=== PATIENT | female | born 1950 | race Caucasian/White ===

== ENCOUNTER 2019-03-13 14:34 | Outpatient (CLI) | payer OTHER, MEDICAID, SELFPAY ==
[2019-03-13 16:13] LABS: Anion Gap 7.4 mmol/L (3-11); BUN 36 mg/dL (7-18); CO2 31.6 mmol/L (21.0-32.0); CREATININE 1.01 mg/dL (0.55-1.02); Calcium 9.1 mg/dL (8.5-10.1); Chloride 106 mmol/L (98-107); Estimated GFR 54.03 (mL/min/1.73m2); Glucose 98 mg/dL (74-106); Potassium 4.2 mmol/L (3.5-5.1); Sodium 145 mmol/L (136-145); TSH (W/Ref FT4) 10.61 uIU/mL (0.36-3.74)
[2019-03-13 16:44] LABS: FREE T4 0.72 ng/dL (0.76-1.46)
[2019-03-13 17:17] LABS: Calculated LDL 85 mg/dL; Cholesterol 150 mg/dL (<200); HDL Cholesterol 53 mg/dL (40-60); Triglyceride 60 mg/dL (<150)
== END 2019-03-13 14:54 ==
PROVIDERS: PCP Student in an Organized Health Care Education/Training Program; Visit Provider Student in an Organized Health Care Education/Training Program
DX: E03.9 Hypothyroidism, unspecified (principal); E11.9 Type 2 diabetes mellitus without complications
CPT/HCPCS: 36415; 80048; 80061; 84439; 84443

== ENCOUNTER 2019-08-14 02:44 | Outpatient (CLI) | payer OTHER, SELFPAY ==
--- NOTE | 2019-08-14 15:37 | DI.MAMMO_ITS ---
EXAM: MG MAMMO SCREENING CLINICAL HISTORY: screening TECHNIQUE: Mammograms were interpreted according to the usual protocol including computer analysis w [facility] CAD system, tomosynthesis and C-view imaging. COMPARISON: FINDINGS: The breasts are of moderate density with fairly symmetrical distribution of fibroglandular tissue. N o dominant mass or clumped microcalcification is identified in either breast. The current examinatio n is compared with previous examination of October 2011. There are areas of of focal increased nodula r appearing radiodensity seen on CC and MLO views the right breast which are more prominent than on t he prior study, additional mammographic views are requested to include CC and MLO spot compression vi ews of the right breast. Additionally there is a question of new focal area nodular radiodensity in the central lateral portion of left breast on CC view, additional CC spot compression view of the lef t breast also requested. IMPRESSION: Additional mammographic views of both breasts requested as described above. Breast ultrasound may be indicated as well depending on the results of the additional mammographic views. BI-RADS Cat 0 - Assessment Incomplete: Need additional imaging evaluation: Breast Density - Category B - Scattered areas of fibroglandular density:
== END 2019-08-14 03:04 ==
PROVIDERS: PCP Student in an Organized Health Care Education/Training Program; Visit Provider Student in an Organized Health Care Education/Training Program
DX: Z12.31 Encounter for screening mammogram for malignant neoplasm of breast (principal); R92.8 Other abnormal and inconclusive findings on diagnostic imaging of breast
CPT/HCPCS: 77063; 77067

== ENCOUNTER 2019-09-02 00:39 | Outpatient (CLI) | payer OTHER, SELFPAY ==
--- NOTE | 2019-09-02 | DI.US_ITS ---
EXAM: MG MAMMO SCREEN CALL BACK BI CLINICAL HISTORY: F/U ABNL MAMMO,INCREASED NODULARITY ON RT, NEW NODULAR DENSITY, LT TECHNIQUE: Mammograms were interpreted according to the usual protocol including computer analysis w ith CAD system, tomosynthesis and C-view imaging. COMPARISON: FINDINGS: Bilateral spot compression views and bilateral breast ultrasound are interpreted in conjunction. The se examinations were obtained to evaluate questionable small areas of nodularity seen on recent mammo gram bilaterally. Additional mammographic views fail to show a discrete mass. Breast ultrasound vinicius ws no evidence of mass or cyst. IMPRESSION: No specific evidence of malignancy this time. I would suggest that a follow-up mammogram be obtained in 6 months which should be a bilateral mammogram. Category: BI-RADS Cat 3 - 6 month - Probably Benign Finding: Recommend follow-up mammography in 6 months Breast Density - Category C - Heterogeneously dense
== END 2019-09-02 00:59 ==
PROVIDERS: PCP Student in an Organized Health Care Education/Training Program; Visit Provider Student in an Organized Health Care Education/Training Program
DX: Z12.31 Encounter for screening mammogram for malignant neoplasm of breast (principal); R92.8 Other abnormal and inconclusive findings on diagnostic imaging of breast; N64.59 Other signs and symptoms in breast
CPT/HCPCS: 76642; 77063; 77067

== ENCOUNTER 2020-03-16 00:43 | Outpatient (CLI) | payer OTHER, SELFPAY ==
--- NOTE | 2020-03-16 13:47 | DI.MAMMO_ITS ---
EXAM: MG MAMMO DIAGNOSTIC BI CLINICAL HISTORY: f/u abnormal mammo,6 MO F/U,R92.8 TECHNIQUE: Bilateral full field digital CC and MLO mammographic images were obtained with 3D tomosyn thesis and utilizing computer aided detection (CAD). COMPARISON: Available for comparison. FINDINGS: Masses/Architectural Distortion: None seen. Microcalcifications: No suspicious pleomorphic-type are seen. Skin Thickening/Nipple Retraction: None. IMPRESSION: 1. No significant interval change with no specific features of malignancy noted. 2. Unless there is more urgent need, screening mammography is recommended, as per [employer] guidelines. BI-RADS Category 1 - Negative Breast Density - Category C - Heterogeneously dense Breast density category C or D implies that the patient has dense breast tissue. Dense breast tissue is very common and is not abnormal but dense breast tissue can make it harder to find cancer on a ma mmogram. Also, dense breast tissue may increase their breast cancer risk. This information about the result of the mammogram report was provided to the patient to raise their awareness. Use this report when you speak with the patient about their risks for breast cancer, which includes their family hist ory. At that time, you may recommend for more screening tests (Ultrasound or MRI) as they might be us eful based on their risk. A negative radiographic report should not delay biopsy if a dominant or clinically suspicious mass is present. Up to ten percent of cancers are not identified on mammography. A negative report may reinforce clinical impression. Adenosis and dense breasts may obscure an underlying neoplasm. False positive reports average 6 to 10%. Patient will receive a letter notifying them of these results.
== END 2020-03-16 01:03 ==
PROVIDERS: PCP Student in an Organized Health Care Education/Training Program; Visit Provider Student in an Organized Health Care Education/Training Program
DX: R92.8 Other abnormal and inconclusive findings on diagnostic imaging of breast (principal)
CPT/HCPCS: 77062; 77066; G0279

== ENCOUNTER 2020-10-18 01:29 | Outpatient (CLI) | payer OTHER, SELFPAY ==
--- NOTE | 2020-10-18 08:15 | DI.CTLCSR_ITS ---
Exam(s) CT CHEST LUNG CANCER SCREEN EXAM: CT CHEST LUNG CANCER SCREEN CLINICAL HISTORY: Screening for lung cancer,former smoker, z87.891 TECHNIQUE: Imaging Protocol: Axial computed tomography images with coronal and sagittal reformatted images were created and reviewed COMPARISON: No exams were available for comparison FINDINGS: Tracheobronchial tree: Patent where visualized. Mediastinum and Chani: No dominant adenopathy or fluid collection. Pulmonary parenchyma: 2 x 1.5 x 2 centimeter spiculated appearing partially cavitary mass superior se gment right lower lobe. Lung Nodules: A few scattered peripheral 3 and 4 millimeter nodules. Pleura: No effusion or pneumothorax. Heart: The heart is not dilated. Moderate coronary artery calcifications are seen. Aorta: Thoracic aorta non-dilated. Moderate atherosclerotic changes. Upper abdomen: Unremarkable. Bones: Within normal limits. Soft Tissues: Unremarkable. IMPRESSION: 2 centimeter spiculated cavitary mass right lower lobe. Lung RADS Cat 4B - Suspicious: Findings for which additional diagnostic testing and/or tissue samplin g is recommended Lung-RADS 1.0 CATEGORIES: Category 0 - Prior chest CT exam(s) being located for comparison. Category 1 - Annual screening in 12 months. No nodules or definitely benign nodules. Category 2 - Annual screening in 12 months. Benign appearance. Nodules with low likelihood of becomin g active cancer. Category 3 - 6-month follow-up. Probably benign. Short-term follow-up suggested. Nodules with low lik elihood of becoming active cancer. Category 4A - 3-month follow-up and CT/PET if >8 mm in size. Suspicious finding. Findings which requi re additional testing. Category 4B - Findings which require additional testing and tissue sampling. Modifier S- Potentially clinically significant findings (non lung cancer) RADIATION DOSE DELIVERED: 82.69mGy.cm Total DLP 1.84mGy CTDIvol DATA REPOSITORY: All CT scans at this facility are submitted to the National Radiology Data Registry (NRDR) Dose Index Registry (DIR) with the [employer] ([employer]). RADIATION OPTIMIZATION: All CT scans at this facility use at least one of these dose optimization te chniques: automated exposure control; mA and/or kV adjustment per patient size (includes targeted exa ms where dose is matched to clinical indication); or iterative reconstruction.
== END 2020-10-18 01:49 ==
PROVIDERS: PCP Student in an Organized Health Care Education/Training Program; Visit Provider Student in an Organized Health Care Education/Training Program
DX: Z12.2 Encounter for screening for malignant neoplasm of respiratory organs (principal); R91.8 Other nonspecific abnormal finding of lung field; Z87.891 Personal history of nicotine dependence
CPT/HCPCS: 71271

== ENCOUNTER 2020-10-20 03:32 | Outpatient (CLI) | payer OTHER, SELFPAY ==
[2020-10-20 14:52] LABS: HCT 39.7 % (36.0-46.0); HGB 12.6 g/dL (11.2-15.7); MCH 29.8 pg (27.0-33.0); MCHC 31.7 % (32.0-36.0); MCV 93.9 fL (80-95); MPV 10.2 fL (8.0-11.0); Platelet Count 192 10^3/uL (130-400); RBC 4.23 10^6/uL (3.93-5.22); RDW 11.3 % (11.7-14.6); RDW-SD 38.5 fL; WBC 4.78 10^3/uL (4.4-10.8)
[2020-10-20 16:17] LABS: ALT 15 U/L (14-59); AST 16 U/L (15-37); Albumin 3.6 g/dL (3.4-5.0); Alkaline Phosphatase 80 U/L (46-116); Anion Gap 7.7 mmol/L (3-11); BUN 31 mg/dL (7-18); Bilirubin, Total 0.7 mg/dL (0.2-1.0); CO2 30.3 mmol/L (21.0-32.0); CREATININE 1.3 mg/dL (0.55-1.02); Calcium 9.1 mg/dL (8.5-10.1); Calculated LDL 102 mg/dL (<100); Chloride 107 mmol/L (98-107); Cholesterol 153 mg/dL (<200); Estimated GFR 40.26 (mL/min/1.73m2); Glucose 123 mg/dL (74-106); HDL Cholesterol 41 mg/dL (40-60); Potassium 4.1 mmol/L (3.5-5.1); Sodium 145 mmol/L (136-145); TSH (W/Ref FT4) 0.13 uIU/mL (0.36-3.74); Total Protein 7.5 g/dL (6.4-8.2); Triglyceride 50 mg/dL (<150); Vitamin B12 497 pg/mL (193-986)
[2020-10-20 18:16] LABS: FREE T4 1.05 ng/dL (0.76-1.46)
== END 2020-10-20 03:33 | disposition home or self-care (01) ==
LOC: LBO 03:32
PROVIDERS: PCP Student in an Organized Health Care Education/Training Program; Visit Provider Student in an Organized Health Care Education/Training Program
DX: I10 Essential (primary) hypertension (principal); E11.9 Type 2 diabetes mellitus without complications; E78.5 Hyperlipidemia, unspecified; R26.9 Unspecified abnormalities of gait and mobility; R41.3 Other amnesia; R53.83 Other fatigue; E03.9 Hypothyroidism, unspecified; F32.9 Major depressive disorder, single episode, unspecified; E46 Unspecified protein-calorie malnutrition; N28.9 Disorder of kidney and ureter, unspecified; Z86.2 Personal history of diseases of the blood and blood-forming organs and certain disorders involving the immune mechanism
CPT/HCPCS: 36415; 80053; 80061; 85027; 82607; 84439; 84443

== ENCOUNTER 2020-10-28 11:58 | Outpatient (REF) | payer OTHER, SELFPAY ==
[2020-10-28 12:09] LABS: Source Nasal/Nares
[2020-10-28 13:03] LABS: COVID-19 PCR Negative (Negative)
== END 2020-10-28 11:59 | disposition home or self-care (01) ==
LOC: LBN 11:58
PROVIDERS: PCP Student in an Organized Health Care Education/Training Program; Visit Provider Ophthalmology
DX: Z20.822 Contact with and (suspected) exposure to COVID-19 (principal); Z01.818 Encounter for other preprocedural examination
CPT/HCPCS: 87635

== ENCOUNTER 2020-10-28 12:17 | Outpatient (CLI) | payer OTHER, SELFPAY ==
--- NOTE | 2020-10-28 10:45 | DI.RAD_ITS ---
Exam(s) XR KNEE LT 3V AP,LAT,NEO EXAM: XR KNEE LT 3V AP,LAT,NEO CLINICAL HISTORY: eval L knee pain. TECHNIQUE: 2D digital imaging was performed. COMPARISON: CR LEFT KNEE LIMITED 1 OR 2 VIEWS from 05/03/2012 FINDINGS: Advanced narrowing and marginal osteophytes in the medial compartment again noted. There is also bee n progression of degenerative change in the lateral compartment with slight increase in size of the m arginal osteophyte at this level. There are advanced degenerative changes in the patellofemoral comp artment with further progression. There appears to be a small joint effusion. No lytic osseous lesi ons. IMPRESSION: Compared to 2013 there is further progression of degenerative change. Small joint effusion. DATA REPOSITORY: RADIATION DOSE DELIVERED:
--- NOTE | 2020-10-28 10:45 | DI.RAD_ITS ---
Exam(s) XR KNEE RT 3V AP,LAT,NEO EXAM: XR KNEE RT 3V AP,LAT,NEO CLINICAL HISTORY: eval R knee pain. TECHNIQUE: 2D digital imaging was performed. COMPARISON: CR LEFT KNEE LIMITED 1 OR 2 VIEWS from 05/03/2012 CR XR KNEE LT 3V AP,LAT,NEO from 10/28/2020 FINDINGS: There is no evidence of fracture. There is significant joint space narrowing of the medial compartme nt and marginal osteophytes. Lateral compartment exhibits relatively preserved height. Moderate deg enerative changes in the patellofemoral compartment. Bone density normal. No osseous lesions. Ther e appears to be a joint effusion. IMPRESSION: DATA REPOSITORY: RADIATION DOSE DELIVERED:
== END 2020-10-28 12:18 | disposition home or self-care (01) ==
LOC: DIORS 12:18
PROVIDERS: PCP Student in an Organized Health Care Education/Training Program; Referring Provider Family Medicine; Visit Provider Student in an Organized Health Care Education/Training Program
DX: M25.562 Pain in left knee (principal); M25.561 Pain in right knee; M17.12 Unilateral primary osteoarthritis, left knee; M17.11 Unilateral primary osteoarthritis, right knee; Z98.890 Other specified postprocedural states
CPT/HCPCS: 20610; 73562; 99203; J1040

== ENCOUNTER 2020-11-01 11:12 | Day surgery (SDC) | payer OTHER, SELFPAY ==
[2020-11-01] VITALS (7 sets, daily range): BP systolic 111–148; BP diastolic 51–104; PULSE 56–64; RESP 14–20; TEMP 36.1–36.8; O2SAT 95–100; BMI 32.3
[2020-11-01] MEDS: Tropicam./Phenyleph. (1/2.5%) 5 ML BTL OU ×3 (12:01→12:12)
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
[2020-11-01] MEDS: Lactated Ringers 1,000 ML 30 ML IV (12:05)
[2020-11-01] MEDS: Lidocaine 2% Jelly 6 ML SYR (12:55)
[2020-11-01] MEDS: Lidocaine 1% Pres-Free 5 ML VIAL (12:55)
[2020-11-01] MEDS: Balanced Salt Soln.-PLUS 500 ML BAG (13:06)
[2020-11-01] MEDS: Duovisc Viscoelastic System EACH 1 EACH (13:07)
[2020-11-01] MEDS: Triamcinolone 40 MG/ML VIAL (13:14)
[2020-11-01] MEDS: Povidone-Iodine Ophth 30 ML BTL (13:14)
--- NOTE | 2020-11-01 13:56 | W.PM.DSUDISC ---
Discharge Plan Disposition Patient Disposition: HOME Condition: Good Discharge Details Attending Provider: Star Hernandez Primary Care Provider: Shelia Barnes Home Meds and New Rx's Prescriptions: No Action (DME) Rolling Walker with seat Qty: 1 RF: 0 fluticasone furoate 27.5 mcg/actuation spray,suspension 2 spray RYAN QHS Qty: 18.2 RF: 1 Hold Instructions: Home Medication placed on hold at Doctor's office acetaminophen [Tylenol] 325 mg tablet 650 mg PO QHS Qty: 200 RF: 1 acetaminophen 500 mg capsule 500 mg PO Q6H PRN (Reason: fever or pain) Qty: 180 RF: 1 bupropion HCl [Wellbutrin SR] 100 mg tablet sustained-release 12 hr 100 mg PO QAM Qty: 30 RF: 1 paroxetine HCl 30 mg tablet 30 mg PO DAILY Qty: 14 RF: 0 paroxetine HCl 20 mg tablet 20 mg PO DAILY Qty: 30 RF: 1 (DME) Nebulizer Qty: 1 RF: 0 ipratropium-albuterol 0.5 mg-3 mg(2.5 mg base)/3 mL solution for nebulization 3 ml IH Q6H PRN (Reason: wheezing) Qty: 90 RF: 1 fluticasone propion-salmeterol [Advair Diskus] 500-50 mcg/dose blister with device 1 inh IH BID Qty: 60 RF: 3 quetiapine [Seroquel] 25 mg tablet 25 mg PO TID Qty: 90 RF: 2 multivitamin tablet 1 tab PO DAILY RF: 0 (DME) NEBULIZER SUPPLIES Qty: 1 RF: 0 aspirin 81 mg tablet,delayed release (DR/EC) 81 mg PO DAILY Qty: 90 RF: 3 magnesium oxide 500 mg capsule 500 mg PO QHS Qty: 90 RF: 3 (DME) lancets Misc See Dose Instructions .ROUTE .MEDSUPPLY Qty: 50 RF: 3 Hold Instructions: Home Medication placed on hold at Doctor's office (DME) blood sugar diagnostic Strip See Dose Instructions .ROUTE .MEDSUPPLY Qty: 100 RF: 3 Hold Instructions: Home Medication placed on hold at Doctor's office levothyroxine 100 mcg tablet 100 mcg PO DAILY Qty: 90 RF: 3 metformin 500 mg tablet 500 mg PO DAILY Qty: 90 RF: 3 atorvastatin 40 mg tablet 40 mg PO DAILY Qty: 90 RF: 3 Discharge Instructions Stand Alone Forms: Post-op Topical Cataract, Ijeoma Solis (DSU) Discharge Orders Discharge Orders: Discharge Order (Routine); Ordered 11/01/20 Ordered By: Star Hernandez DS: Diagnosis Discharge Diagnosis (1) Nuclear sclerotic cataract of left eye: Status: Resolved (2) Cortical cataract of left eye: Status: Resolved (3) Posterior subcapsular age-related cataract of left eye: Status: Resolved (4) Nuclear sclerotic cataract of right eye: Status: Resolved (5) Cortical cataract of right eye: Status: Resolved (6) Posterior subcapsular age-related cataract, right eye: Status: Resolved (7) Cataract, bilateral: Status: Resolved
--- NOTE | 2020-11-01 13:58 | ROE_ITS ---
Date of service: 11/01/20 Time of Service: 13:58 Operative Note Operative Note DATE OF PROCEDURE: 11/01/20 PRE-OP DIAGNOSIS: Nuclear/cortical/posterior subcapsular cataract, left eye POST-OP DIAGNOSIS: same PROCEDURE: Cataract extraction using phacoemulsification with intraocular lens implant, left eye SURGEON: Star Hernandez ANESTHESIA TYPE: Local By Surgeon and MAC Refer to Anesthesia Record PATHOLOGY: none sent COMPLICATIONS: None Patient was transported to: same day Patient's condition: stable Implants: Ant and Ant / [employer] Tecnis [id number] Indications: Progressive decreased vision due to cataract, left eye, with poor red reflex Procedure Description: CATARACT SURGERY OPERATIVE REPORT PREOPERATIVE DIAGNOSIS: 1. Nuclear/cortical/posterior subcapsular cataract, left eye POSTOPERATIVE DIAGNOSIS: Same OPERATION: 1. Cataract extraction using phacoemulsification with posterior chamber intraocular lens implant, left eye. IOL: IOL Upper Lining Cementer/Model: Ant & Ant / EM Tecnis ZCB00 IOL Power: + 20.0 diopters IOL Serial Number: [id number] Optic Diameter: 6.0 mm Haptic/Overall Diameter: 13.0 mm PHACO INFO: Hipolito DoubleUpurion Vision System with OZil and Active Fluidics Cumulative Dispersed Energy (CDE): 9.64 seconds SURGEON: Star Hernandez MD, RAZIA ANESTHESIA: General/LMA, with local sub-tenon's anesthetic infiltration COMPLICATIONS: None SPECIMENS: None INDICATIONS FOR PROCEDURE: The patient is a 70-year-old lady with history of dementia who has developed significant bilateral nuclear/cortical/posterior subcapsular cataracts. She is significantly symptomatic that she desires cataract surgery and attempt to improve and maximize her vision. She is unable to tolerate surgery under local anesthesia with or without sedation. General/LMA anesthesia is indicated. The option of immediately sequential bilateral cataract surgery on the same day was offered to the patient and she wished to proceed. The left eye is the first eye. PROCEDURE: The correct surgical eye was identified and marked as the left eye and the pupil was dilated in the preoperative area using mydriatics and cycloplegics. The dilated pupil size was 6.0 mm. The patient was brought to the operating room where cardiopulmonary monitoring was instituted and surgical time-out was performed, confirming the correct operative eye and IOL power. General/LMA anesthesia was instituted. Topical anesthesia was administered and ophthalmic povidone-iodine 5% was instilled into the conjunctival fornices. Lidocaine gel was applied to the cornea and the crissy-ocular area was prepped with Betadine 10% solution and draped in the usual sterile fashion for intraocular surgery, including an aperture drape. A Tegaderm transparent film dressing was cut in half and used to cover the lashes and lid margins. Care was taken to sequester the lashes and lid margins under the Tegaderm dressing. A lid speculum was placed between the lids of the operative eye and the Davis-Ced operating microscope was maneuvered into position. Brooks scissors were then used to make a conjunctival buttonhole approximately 6mm posterior to the limbus in the inferonasal quadrant. Blunt dissection was carried out to expose bare sclera, and a blunt-tipped sub-tenon?s anesthesia cannula was introduced and passed posteriorly along the globe where non- preserved plain lidocaine was injected into posterior sub-Tenon?s space. A sideport knife was used to make a paracentesis port superiorly/superiortemporally. Intraocular phenylephrine/lidocaine was injected int the anterior chamber.. The anterior chamber was filled with viscoelastic. A 2.4mm keratome knife was used to create a half-thickness groove at the limbus and then to construct a three-plane near-clear corneal tunnel extending 2.0mm into clear cornea at the 3:00 position. A flap was raised on the anterior capsule and capsulorhexis forceps were used to complete a continuous curvilinear capsulorhexis of 5.0 mm. Balanced salt solution was then used to perform cortical cleaving hydrodissection and nuclear hydrodelineation until the lens could be freely rotated within the capsular bag. The lens nucleus was then disassembled and rem travis within the capsular bag and iris plane using phacoemulsification. Residual cortical material was removed using the 45-degree angled silicone I/A tip with 0.3mm port. The posterior capsule was carefully polished to remove as much residual lens epithelial cells as safely possible. The capsular bag was then inflated and the anterior chamber deepened with viscoelastic. The lens implant described above was inserted into the capsular bag using the EM [place] Injector. A Kuglen hook was used to dial the IOL into position. Residual viscoelastic was then removed first from posterior to the IOL, then from the anterior chamber using the I/A handpiece. The lens implant was noted to center nicely within the capsular bag. The incisions were stromally hydrated, and the anterior chamber was reformed using BSS. Then 0.5cc of moxifloxacin 1.0mg/ml were injected into the capsular bag and anterior chamber. The incisions were checked with a Weck spear and found to be secure. At the conclusion of the procedure, Kenalog 20 mg in 0.5 cc were injected into posterior sub-tenon's space using the sub-tenon's anesthesia cannula. Several drops of ophthalmic povidone-iodine 5% were then applied to the eye followed by two drops of Imprimis combination prednisolone/moxifloxacin/nepafenac solution. The drapes were removed and a clear protective eye shield was placed on the eye. Attention was then directed to the right eye.
--- NOTE | 2020-11-01 14:05 | W.PM.OP ---
Date of service: 11/01/20 Time of Service: 14:05 Operative Note Operative Note DATE OF PROCEDURE: 11/01/20 PRE-OP DIAGNOSIS: Nuclear/cortical/posterior subcapsular cataract, right eye POST-OP DIAGNOSIS: same PROCEDURE: Cataract extraction using phacoemulsification with intraocular lens implant, right eye SURGEON: Star Hernandez ANESTHESIA TYPE: Local By Surgeon and MAC Refer to Anesthesia Record ESTIMATED BLOOD LOSS: 0 PATHOLOGY: none sent COMPLICATIONS: None Patient was transported to: same day Patient's condition: stable Implants: Ant & Ant/EM Tecnis [id number] Indications: Progressive visual loss due to cataract, right eye Procedure Description: CATARACT SURGERY OPERATIVE REPORT PREOPERATIVE DIAGNOSIS: 1. Nuclear/cortical/posterior subcapsular cataract, right eye POSTOPERATIVE DIAGNOSIS: Same OPERATION: 1. Cataract extraction using phacoemulsification with posterior chamber intraocular lens implant, right eye. IOL: IOL Av Specialist/Model: Ant & Ant / EM Tecnis ZCB00 IOL Power: + 20.5 diopters IOL Serial Number: [id number] Optic Diameter: 6.0mm Haptic/Overall Diameter: 13.0mm PHACO INFO: Hipolito Cirqleurion Vision System with OZil and Active Fluidics Cumulative Dispersed Energy (CDE): 6.23 seconds SURGEON: Star Hernandez MD, RAZIA ANESTHESIA: General/LMA, with local sub-tenon's anesthetic infiltration COMPLICATIONS: None SPECIMENS: None INDICATIONS FOR PROCEDURE: The patient is a 70-year-old lady with history of dementia who has developed significant bilateral nuclear/cortical/posterior subcapsular cataracts. She is significantly symptomatic that she desired cataract surgery and attempt to improve and maximize her vision. She is unable to tolerate surgery under local anesthesia with or without sedation. General/LMA anesthesia is planned. In addition, the option of immediately sequential bilateral cataract surgery on the same day was offered to the patient and she wished to proceed. She has just undergone surgery on the left eye and attention is now directed to the right eye. PROCEDURE: The patient was already under general/LMA anesthesia, immediately after surgery on her left eye. An entirely new set of gowns, gloves, drapes, fluids, medications, plastics, and instruments were used for the right eye. The dilated pupil size was 6.0 mm. A surgical timeout was performed, confirming the correct operative eye and the correct IOL power. Topical anesthesia was administered and ophthalmic povidone-iodine 5% was instilled into the conjunctival fornices. Lidocaine gel was applied to the cornea and the crissy-ocular area was prepped with Betadine 10% solution and draped in the usual sterile fashion for intraocular surgery, including an aperture drape. A Tegaderm transparent film dressing was cut in half and used to cover the lashes and lid margins. Care was taken to sequester the lashes and lid margins under the Tegaderm dressing. A lid speculum was placed between the lids of the operative eye and the Davis-Ced operating microscope was maneuvered into position. Brooks scissors were then used to make a conjunctival buttonhole approximately 6mm posterior to the limbus in the inferonasal quadrant. Blunt dissection was carried out to expose bare sclera, and a blunt-tipped sub-tenon?s anesthesia cannula was introduced and passed posteriorly along the globe where non-preserved plain lidocaine was injected into posterior sub-Tenon?s space. A sideport knife was used to make a paracentesis port inferotemporally. Intraocular phenylephrine/lidocaine was injected into the anterior chamber. The anterior chamber was filled with viscoelastic. A 2.4mm keratome knife was used to create a half-thickness groove at the limbus and then to construct a three-plane near-clear corneal tunnel extending 2.0mm into clear cornea superiortemporally. A flap was raised on the anterior capsule and capsulorhexis forceps were used to complete a continuous curvilinear capsulorhexis of 5.0 mm. Balanced salt solution was then used to perform cortical cleaving hydrodissection and nuclear hydrodelineation until the lens could be freely rotated within the capsular bag. The lens nucleus was then disassembled and removed within the capsular bag and iris plane using phacoemulsification. Residual cortical material was removed using the I/A handpiece. The posterior capsule was carefully polished to remove as much residual lens epithelial cells as safely possible. The capsular bag was then inflated and the anterior chamber deepened with viscoelastic. The lens implant described above was inserted into the capsular bag using the EM [place] Injector. A Kuglen hook was used to dial the IOL into position. Residual viscoelastic was then removed first from posterior to the IOL, then from the anterior chamber using the I/A handpiece. The lens implant was noted to center nicely within the capsular bag. The incisions were stromally hydrated, and the anterior chamber was reformed using BSS. Then 0.5cc of moxifloxacin 1.0mg/ml were injected into the capsular bag and anterior chamber. The incisions were checked with a Weck spear and found to be secure. At the conclusion of the procedure, Kenalog 20 mg in 0.5 cc were injected into posterior sub-tenon's space using the sub-tenon's injection cannula. Several drops of ophthalmic povidone-iodine 5% were then applied to the eye followed by two drops of Imprimis combination prednisolone/moxifloxacin/nepafenac solution. The drapes were removed and a clear plastic protective eye shield was placed over the eye. The patient was then awakened and brought to PACU in stable condition.
--- NOTE | 2020-11-03 07:04 | W.ANESPOSTOP ---
Postoperative Evaluation Date, Time and Location Date Performed: 11/01/20 Time Performed: 17:30 Patient Location: Day Surgery Unit Vital Signs Most Recent Imported Vital Signs: Most Recent Vital Signs Temp Pulse Resp BP Pulse Ox 36.4 C L 60 16 113/65 95 11/01/20 14:55 11/01/20 14:55 11/01/20 14:55 11/01/20 14:55 11/01/20 14:55 Pain Score Most Recent Pain Score: Most Recent Pain Score Pain Level 0 11/01/20 14:32 Assessment Mental Status: Arousable with meaningful communication Airway and Respiratory Function: Patent airway with normal (patient baseline) respiratory exam Cardiovascular Function: Hemodynamically Stable Hydration Status: Adequately Hydrated Nausea & Vomiting: No Nausea or Vomiting Pain: Pt. Denies Any Pain Peripheral Nerve Block: Patient did not receive a nerve block Postoperative Comments:: Patient discharged before anesthesia could see the patient.
== END 2020-11-01 15:18 | disposition home or self-care (01) ==
PROVIDERS: PCP Student in an Organized Health Care Education/Training Program; Visit Provider Ophthalmology
PROC: (CPT 66984; principal; 2020-11-01 14:30)
DX: H25.042 Posterior subcapsular polar age-related cataract, left eye (principal); H25.041 Posterior subcapsular polar age-related cataract, right eye; G30.0 Alzheimer's disease with early onset; F02.80 Dementia in other diseases classified elsewhere, unspecified severity, without behavioral disturbance, psychotic disturbance, mood disturbance, and anxiety; E11.9 Type 2 diabetes mellitus without complications
CPT/HCPCS: 66984; V2632; J1100; J2405; J2704

== ENCOUNTER 2021-07-28 03:35 | Outpatient (CLI) | payer OTHER, SELFPAY ==
[2021-07-28 15:15] LABS: Anion Gap 3.5 mmol/L (3-11); BUN 27 mg/dL (7-18); CO2 31.5 mmol/L (21.0-32.0); Calcium 8.8 mg/dL (8.5-10.1); Chloride 104 mmol/L (98-107); Estimated GFR 54.35 (mL/min/1.73m2); Glucose 82 mg/dL (74-106); Potassium 4.4 mmol/L (3.5-5.1); Sodium 139 mmol/L (136-145); TSH (W/Ref FT4) 8.91 uIU/mL (0.36-3.74)
[2021-07-28 15:58] LABS: FREE T4 0.61 ng/dL (0.76-1.46)
== END 2021-07-28 03:36 | disposition home or self-care (01) ==
LOC: LBO 03:35
PROVIDERS: PCP Student in an Organized Health Care Education/Training Program; Visit Provider Student in an Organized Health Care Education/Training Program
DX: E05.90 Thyrotoxicosis, unspecified without thyrotoxic crisis or storm (principal); E11.9 Type 2 diabetes mellitus without complications; N28.9 Disorder of kidney and ureter, unspecified
CPT/HCPCS: 36415; 80048; 84439; 84443

== ENCOUNTER 2021-09-22 01:24 | Outpatient (CLI) | payer OTHER, SELFPAY ==
--- NOTE | 2021-09-22 13:15 | DI.CT_ITS ---
Exam(s) CT CHEST WO EXAM: CT CHEST WO CLINICAL HISTORY: evaluate nodules and rll mass,R91.8. TECHNIQUE: Imaging protocol: Axial computed tomography images were obtained and coronal and sagittal reformatted images were created and reviewed. COMPARISON: CT CT CHEST LUNG CANCER SCREEN from 10/18/2020 FINDINGS: Tracheobronchial tree: Patent where visualized. Pulmonary parenchyma: There is a 3 mm nodule in the medial aspect of the right lung apex. The cavita ry mass in the right lower lobe now measures 2.7 x 1.4 x 2.5 cm. This compares to 2 x 1.5 x 2 cm. T here is unchanged nodular scarring in the right middle lobe. There again seen scattered 3-4 mm nodul es in the lungs. There may be a slight increase in number of the nodules. There is also peripheral pleural thickening, pulmonary scarring or nodules along the posterior aspect of the left lower lobe. These appear stable. Mediastinum and Chani: No dominant adenopathy or fluid collection. The esophagus is unremarkable. Thyroid gland: Unremarkable. Pleura: No effusion or pneumothorax. Heart: The heart is not dilated. Coronary artery calcifications are present. No pericardial effusion . Aorta: Thoracic aorta non-dilated. Atherosclerosis is present. Upper abdomen: Unremarkable. Lymph nodes: Within normal limits. Soft tissues: Unremarkable. Bones:Within normal limits for the patient's age. IMPRESSION: 1. Interval increase in size of the right lower lobe cavitary mass since 10/18/2020. 2. Stable scarring or nodularity in the right middle lobe and the left lower lobe posteriorly. 3. Several small 3-4 mm pulmonary nodules. There do appear to be for a few more nodules visualized o n the current examination. RADIATION DOSE DELIVERED: 576.54mGy.cm Total DLP 576.54mGy.cm Total DLP DATA REPOSITORY: All CT scans at this facility are submitted to the National Radiology Data Registry (NRDR) Dose Index Registry (DIR) with the [employer] ([employer]). RADIATION OPTIMIZATION: All CT scans at this facility use at least one of these dose optimization te chniques: automated exposure control; mA and/or kV adjustment per patient size (includes targeted exa ms where dose is matched to clinical indication); or iterative reconstruction.
== END 2021-09-22 01:44 ==
PROVIDERS: PCP Student in an Organized Health Care Education/Training Program; Visit Provider Student in an Organized Health Care Education/Training Program
DX: R91.8 Other nonspecific abnormal finding of lung field (principal)
CPT/HCPCS: 71250

== ENCOUNTER 2021-10-19 15:36 | Outpatient (CLI) | payer OTHER, SELFPAY ==
--- NOTE | 2021-10-19 15:30 | RT.EKG_ITS ---
APPROVED REPORT Exam: Resting ECG Reason for Exam: shortness of breath Patient Location: O HR:67 bpm ECG Measurements Heart Rate 67 AXIS KS [id number] P [id number] QRSd 152 QRS 6 QT 437 T -44 QTc 462 Conclusion Atrial flutter...A-rate 319 Right bundle branch block...QRSd>120, terminal axis(90,270) Baseline wander in lead(s) V3
== END 2021-10-19 15:37 | disposition home or self-care (01) ==
LOC: DI.KIM 15:39
PROVIDERS: PCP Student in an Organized Health Care Education/Training Program; Visit Provider Student in an Organized Health Care Education/Training Program
DX: R06.02 Shortness of breath (principal); R94.31 Abnormal electrocardiogram [ECG] [EKG]; I48.91 Unspecified atrial fibrillation; I45.19 Other right bundle-branch block
CPT/HCPCS: 93010

== ENCOUNTER 2022-07-06 16:14 | Emergency (ER) | payer OTHER, SELFPAY ==
[2022-07-06 16:18] VITALS: PULSE 82; RESP 18; TEMP 36.2; O2SAT 97
[2022-07-06 16:21] VITALS: BP 115/71
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
--- NOTE | 2022-07-06 16:45 | DI.RAD_ITS ---
Exam(s) XR HIP LT COMPLETE AP PELVIS EXAM: XR HIP LT COMPLETE AP PELVIS INDICATION: fall and pain. COMPARISON: No exams were available for comparison TECHNIQUE: 2D digital imaging was performed. Three views. FINDINGS: There is no evidence of fracture dislocation. The hip joint spaces are maintained. The SI joints an d pubic symphysis are not widened. There are advanced degenerative changes of the lower lumbar spine . IMPRESSION: No acute abnormality. DATA REPOSITORY: RADIATION DOSE DELIVERED:
--- NOTE | 2022-07-06 18:03 | DI.VRAD_ITS ---
PROCEDURE INFORMATION: Exam: XR Left Hip Exam date and time: 07/06/2022 5:28 PM Age: 72 years old Clinical indication: Injury or trauma; Fall; Blunt trauma (contusions or hematomas); Left; Hip TECHNIQUE: Imaging protocol: Radiologic exam of the left hip. Views: 2 or 3 views hip with pelvis when performed. COMPARISON: No relevant prior studies available. FINDINGS: Bones/joints: Osseous alignment is normal. No acute fracture. Moderate degenerative changes noted in the pubic symphysis. Soft tissues: Unremarkable. IMPRESSION: No acute abnormality Dictated and Authenticated by: Mike Schulte MD. Ordering:TAMI Sanchez MD
[2022-07-06 18:49] VITALS: BP 104/58; PULSE 78; TEMP 36.4; O2SAT 97
== END 2022-07-06 19:04 | disposition home or self-care (01) ==
PROVIDERS: Emergency Provider Emergency Medicine Emergency Medical Services; PCP Student in an Organized Health Care Education/Training Program
DX: S70.02XA Contusion of left hip, initial encounter (principal); W01.0XXA Fall on same level from slipping, tripping and stumbling without subsequent striking against object, initial encounter
CPT/HCPCS: 99283; 73502

== ENCOUNTER 2022-08-14 16:01 | Outpatient (REF) | payer OTHER, SELFPAY ==
[2022-08-14 14:15] LABS: ALT 17 U/L (14-59); AST 17 U/L (15-37); Albumin 3.5 g/dL (3.4-5.0); Alkaline Phosphatase 82 U/L (46-116); Anion Gap 3.6 mmol/L (3-11); BUN 27 mg/dL (7-18); Bilirubin, Total 0.6 mg/dL (0.2-1.0); CO2 32.4 mmol/L (21.0-32.0); CREATININE 1.2 mg/dL (0.55-1.02); Calcium 9.3 mg/dL (8.5-10.1); Chloride 104 mmol/L (98-107); Glucose 103 mg/dL (74-106); Sodium 140 mmol/L (136-145); TSH (W/Ref FT4) 0.86 uIU/mL (0.36-3.74); Total Protein 7.4 g/dL (6.4-8.2)
== END 2022-08-14 16:02 | disposition home or self-care (01) ==
LOC: LBN 16:01
PROVIDERS: PCP Student in an Organized Health Care Education/Training Program; Visit Provider Student in an Organized Health Care Education/Training Program
DX: E03.9 Hypothyroidism, unspecified (principal); E46 Unspecified protein-calorie malnutrition; K76.9 Liver disease, unspecified; R06.02 Shortness of breath
CPT/HCPCS: 80053; 84443

== ENCOUNTER 2022-08-18 18:06 | Emergency (ER) | payer MEDICARE, MEDICAID, SELFPAY ==
[2022-08-18 18:06] VITALS: BP 129/105; PULSE 80; RESP 18; TEMP 37.2; O2SAT 99
--- NOTE | 2022-08-18 18:15 | DI.CT_ITS ---
Exam(s) CT HEAD CERV SPINE FACIAL WO EXAM: CT HEAD CERV SPINE FACIAL WO CLINICAL HISTORY: fall, pain. TECHNIQUE: Imaging Protocol: Axial computed tomography images with coronal and sagittal reformatted images were created and reviewed COMPARISON: CT HEAD WITHOUT CONTRAST from 07/21/2013 FINDINGS: The examination is limited due to patient motion artifact. CT Head: Ventricles and Extra axial spaces: There is a right subdural fluid collection measuring maximally 6 m m. It is not hyperdense to suggest acute hemorrhage. It is however of higher density than CSF. Thi s may reflect subacute hemorrhage. No fluid debris level is seen. There is effacement of the adjace nt sulci. There is no midline shift. Hemorrhage: None. Cerebral parenchyma: There is no evidence of an acute territorial infarct. There are areas of decrea sed attenuation in the white matter most consistent with small vessel ischemic disease. Midline shift: None. Brainstem/Cerebellum: Normal. Calvarium: Normal. Visualized Paranasal sinuses/Mastoids: Clear. Soft Tissues: Unremarkable. CT Face: Facial Bones: No definite fracture is noted in facial bones. Sinuses and Mastoids: Unremarkable. Globes, extraocular muscles, optic nerves and retrobulbar fat: Normal. Upper aerodigestive tract: Normal. Mandible and bilateral temporomandibular joints: Normal. Soft tissues: Normal. CT Cervical Spine: Bones: No acute fracture or subluxation. Degenerative changes are seen in the cervical spine. Soft Tissues: Unremarkable. Lung Apices: Clear. IMPRESSION: 1. Findings which may represent a subacute right subdural hemorrhage. No midline shift. 2. No acute fracture or subluxation in the cervical spine. 3. No acute facial fracture. RADIATION DOSE DELIVERED: 2,022.98mGy.cm Total DLP DATA REPOSITORY: All CT scans at this facility are submitted to the National Radiology Data Registry (NRDR) Dose Index Registry (DIR) with the [employer] (ACR). RADIATION OPTIMIZATION: All CT scans at this facility use at least one of these dose optimization te chniques: automated exposure control; mA and/or kV adjustment per patient size (includes targeted exa ms where dose is matched to clinical indication); or iterative reconstruction.
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
--- NOTE | 2022-08-18 19:09 | DI.VRAD_ITS ---
Addendum created by Luciano Smith DO on 08/18/2022 7:11:44 PM EDT: THIS REPORT CONTAINS FINDINGS THAT MAY BE CRITICAL TO PATIENT CARE. The findings were verbally communicated via telephone conference with Wali Mei at 7:11 PM EDT on 08/18/2022. The findings were acknowledged and understood. Initial report created on 08/18/2022 7:09:04 PM EDT: PROCEDURE INFORMATION: Exam: CT Head Without Contrast Exam date and time: 08/18/2022 6:40 PM Age: 72 years old Clinical indication: Other: Fall TECHNIQUE: Imaging protocol: Computed tomography of the head without contrast. COMPARISON: No relevant prior studies available. FINDINGS: Brain: Acute to subacute right hemispheric subdural collection measuring 6 mm at maximal thickness. Cerebral ventricles: No ventriculomegaly. Paranasal sinuses: Visualized sinuses are unremarkable. No fluid levels. Mastoid air cells: Visualized mastoid air cells are well aerated. Bones/joints: Unremarkable. No acute fracture. Soft tissues: Unremarkable. IMPRESSION: Acute to subacute right hemispheric subdural collection measuring 6 mm at maximal thickness. No midline shift. PROCEDURE INFORMATION: Exam: CT Maxillofacial Without Contrast Exam date and time: 08/18/2022 6:40 PM Age: 72 years old Clinical indication: Other: Fall TECHNIQUE: Imaging protocol: Computed tomography of the face without contrast. COMPARISON: No relevant prior studies available. FINDINGS: Orbital cavities: Orbits are normal. Globes are unremarkable. Bones/joints: No acute fracture. Paranasal sinuses: Normal. No air-fluid levels. Soft tissues: Unremarkable. Other findings: Motion artifact degrades the images. IMPRESSION: No acute abnormality within the limitations of the study. PROCEDURE INFORMATION: Exam: CT Cervical Spine Without Contrast Exam date and time: 08/18/2022 6:40 PM Age: 72 years old Clinical indication: Other: Fall TECHNIQUE: Imaging protocol: Computed tomography of the cervical spine without contrast. COMPARISON: CT CHEST WO 09/22/2021 1:11 PM FINDINGS: Bones/joints: Multilevel degenerative disc disease.There is multilevel uncovertebral and facet hypertrophy with neural foramina narrowing. No acute fracture. Grade 1 anterolisthesis of C7 over T1. Lungs: Lung apices are normal. Soft tissues: Unremarkable. IMPRESSION: No acute abnormality. Dictated and Authenticated by: Luciano Smith MD. Ordering:NATALIA Keyes MD
--- NOTE | 2022-08-18 19:40 | NUR.NOTE ---
Referral to Care Management to reach out to patient's sister Linda Jensen for resources. Possible long term placement.Nursing Note:
--- NOTE | 2022-08-20 09:28 | PDOC.CMACT ---
Date of service: 08/19/22 Time of Service: 11:00 Care Management Activity Note Activity Note Text Activity Note Text: Antonette is seen in the ED for multiple falls. At the request of ED provider, CM contacts patient's caregiver, Linda, by telephone to discuss needs. Linda reports Bela is doing better and confirms that patient is admitted to hospice. Linda states she intends on contacting hospice on Sunday to discuss recent events and potential [place] [facility] placement.
== END 2022-08-18 19:53 | disposition home or self-care (01) ==
PROVIDERS: Emergency Provider Emergency Medicine; PCP Student in an Organized Health Care Education/Training Program
DX: F03.918 Unspecified dementia, unspecified severity, with other behavioral disturbance (principal); G93.89 Other specified disorders of brain; W19.XXXA Unspecified fall, initial encounter
CPT/HCPCS: 99284; 70450; 70486; 72125

== ENCOUNTER 2022-11-22 13:16 | Inpatient (IN) | payer OTHER, SELFPAY ==
[2022-11-22] VITALS (9 sets, daily range): BP systolic 104–126; BP diastolic 52–71; PULSE 69–81; RESP 16–27; TEMP 36.5–36.6; O2SAT 96–98
--- NOTE | 2022-11-22 13:20 | DI.CT_ITS ---
Exam(s) CT HEAD CERVICAL SPINE WO EXAM: CT HEAD CERVICAL SPINE WO CLINICAL HISTORY: multiple falls, hx of brain bleed, eval for bleed. TECHNIQUE: Imaging Protocol: Axial computed tomography images with coronal and sagittal reformatted images were created and reviewed COMPARISON: CT CT HEAD CERV SPINE FACIAL WO from 08/18/2022 FINDINGS: BRAIN: Some motion artifact There are no skull fractures nor fluid in the visualized paranasal sinuses. The size of the right subdural hematoma has significantly decreased and also contains an element of h yperdense acute blood superimposed upon more subacute blood. There is also significant mass effect a nd shift of midline structures towards the opposite-left side by approximately 5-6 mm. The thickness of the right convexity subdural hematoma is now 2 cm. There is no blood within the ventricular syst em nor within the basal cisterns. CERVICAL SPINE: Motion artifact. There is no evidence of obvious acute fracture nor listhesis. No significant prevertebral soft tissu e swelling. Multilevel chronic advanced disc space narrowing. Multilevel facet arthropathy. There is no significant facet joint malalignment. No significant osseous lesions evident. IMPRESSION: Deterioration with significant large mint in the size of the right subdural hematoma which now is 2 c m (20 mm) thick and which contains both subacute and hyperdense acute blood components. Shift of mid line structures by approximately 6 mm towards the opposite-left side. No evidence of obvious acute cervical spine fracture, malalignment, nor acute compromise of the cervi reggie spinal canal. Discussed with ER physician RADIATION DOSE DELIVERED: 1,750.14mGy.cm Total DLP DATA REPOSITORY: All CT scans at this facility are submitted to the National Radiology Data Registry (NRDR) Dose Index Registry (DIR) with the [employer] (A[employer]). RADIATION OPTIMIZATION: All CT scans at this facility use at least one of these dose optimization te chniques: automated exposure control; mA and/or kV adjustment per patient size (includes targeted exa ms where dose is matched to clinical indication); or iterative reconstruction.
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
[2022-11-22 13:42] LABS: Abs Immature Grans 0.01 10^3/uL (0.0-0.06); Absolute Basophil Count 0.04 10^3/uL (0.0-0.2); Absolute Eosinophil Count 0.08 10^3/uL (0.0-0.7); Absolute Lymphocyte Count 1.83 10^3/uL (1.2-3.4); Absolute Monocyte Count 0.47 10^3/uL (0.1-0.8); Absolute Neutrophil Count 2.54 10^3/uL (1.2-6.7); Basophils % 0.8; Eosinophils % 1.6; HCT 38.3 % (36.0-46.0); HGB 12.2 g/dL (11.2-15.7); Immature Grans % 0.2; Lymphocytes % 36.8; MCH 29.7 pg (27.0-33.0); MCHC 31.9 % (32.0-36.0); MCV 93 fL (80-95); Monocytes % 9.5; Neutrophils % 51.1; Platelet Count 186 10^3/uL (130-400); RBC 4.11 10^6/uL (3.93-5.22); RDW 12.4 % (11.7-14.6); RDW-SD 42.9 fL; WBC 4.97 10^3/uL (4.4-10.8)
[2022-11-22 13:59] LABS: ALT 17 U/L (14-59); AST 17 U/L (15-37); Albumin 3.8 g/dL (3.4-5.0); Alkaline Phosphatase 86 U/L (46-116); Anion Gap 1.5 mmol/L (3-11); BUN 27 mg/dL (7-18); Bilirubin, Total 0.5 mg/dL (0.2-1.0); CO2 31.5 mmol/L (21.0-32.0); CREATININE 1.7 mg/dL (0.55-1.02); Calcium 9.4 mg/dL (8.5-10.1); Chloride 104 mmol/L (98-107); Estimated GFR 31.27 (mL/min/1.73m2); Glucose 99 mg/dL (74-106); Potassium 4.2 mmol/L (3.5-5.1); Sodium 137 mmol/L (136-145); Total Protein 8.3 g/dL (6.4-8.2)
[2022-11-22 14:06] LABS: PTT Activated 22.1 sec (21.5-31.9); Prothrombin Time 9.8 sec (9.3-11.0)
[2022-11-22 17:46] LABS: Bilirubin Negative (Negative); Blood Negative (Negative); Clarity Clear (Clear); Glucose Negative (Negative); Ketones Negative (Negative); Leukocyte Esterase Negative (Negative); Nitrite Negative (Negative)
[2022-11-22 18:01] LABS: Bacteria Moderate HPF (Negative); Epithelial Cells Rare HPF (Negative); RBC 0-2 HPF (0-2); WBC 0-2 HPF (0-5)
[2022-11-22 18:02] LABS: C & S Indicated? Yes; Casts Negative LPF (Negative); Crystals Negative HPF (Negative); Mucus Negative (Negative)
[2022-11-22] MEDS: QUEtiapine 25 MG TAB PO (18:17)
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
[2022-11-22] MEDS: LORazepam 1 MG TAB PO (19:35)
[2022-11-22] MEDS: buPROPion 100 MG TAB 200 MG PO (19:35)
[2022-11-22] MEDS: DULoxetine 20 MG CAP PO (21:46)
[2022-11-22] MEDS: QUEtiapine 25 MG TAB 75 MG PO (21:46)
[2022-11-23] MEDS: Levothyroxine 100 MCG TAB (04:15)
[2022-11-23] MEDS: buPROPion 100 MG TAB 200 MG PO ×2 (10:22→19:56)
[2022-11-23] MEDS: metFORMIN 500 MG TAB PO (10:23)
[2022-11-23] MEDS: DULoxetine 20 MG CAP PO ×2 (10:23→19:57)
[2022-11-23] MEDS: PARoxetine 20 MG TAB PO (10:24)
[2022-11-23] MEDS: Normal Saline Flush 10 ML SYR IVP (13:32)
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
--- NOTE | 2022-11-23 15:28 | CHAPLAIN ---
Bela is a hospice patient here for respite. She was in bed resting, watching tv when I visited. She was pleasant and engaged in a conversation with me. I didn't understand everything she said through out the conversation. Her sister has been caring for Bela at home, where she has been experiencing a number of falls. According to Care Management notes, Bela will be admitted to [facility] when she is medically cleared.
--- NOTE | 2022-11-23 19:50 | NUR.NOTE ---
Nursing Note: Per day shift pt started c/o headache at 1845, PRN pain med given. At shift change pt still c/o pain. Shortly after shift change pt reporting that she is having trouble with vision in R eye, also still having a lot of pain from headache. parakeet raiser aware and notified . Pt's sister Linda also updated.
[2022-11-23] MEDS: Acetaminophen 500 MG TAB PO (19:57)
[2022-11-23] MEDS: LORazepam 1 MG TAB PO (19:57)
[2022-11-23] MEDS: Dexamethasone 4 MG/ML VIAL IM (21:45)
[2022-11-23] MEDS: QUEtiapine 25 MG TAB 75 MG PO (21:46)
[2022-11-24] MEDS: metFORMIN 500 MG TAB PO (09:27)
[2022-11-24] MEDS: DULoxetine 20 MG CAP PO (09:29)
[2022-11-24] MEDS: PARoxetine 20 MG TAB PO (09:29)
[2022-11-24] MEDS: buPROPion 100 MG TAB 200 MG PO (10:35)
[2022-11-24] MEDS: Dexamethasone 10 MG/ML VIAL 4 MG IM (12:05)
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
--- NOTE | 2022-11-24 13:57 | NUR.NOTE ---
Nursing Note: RN to RN report [facility]
--- NOTE | 2022-11-24 14:01 | CMDISCH_ITS ---
Date of service: 11/24/22 Time of Service: 14:01 LACE Index Scoring Tool Questions: Length of Stay (in days): 2 Was the patient admitted via the E.D.?: No Comorbidities: Cerebrovascular Disease (TIA) and Dementia E.D. Visits: 3 Answers: Total Score: 10 Risk of Readmission: High Risk Care Management Discharge Plan Reason for Hospitalization: Hospice respite, subdural hematoma Discharge Plan: Bela is discharged to [facility] on Hospice. She is transported via EMS. Bela will follow up with Hospice and facility providers and her discharge plan of care as instructed. Patient/Family Education Needs: Review discharge instructions, limitations, medications and plan to follow up with community providers. Discuss ask me three. Services Needed at Discharge: Nursing Home Facility ([facility]) and Transportation (Via EMS, coordinated by Hospice)
--- NOTE | 2022-11-24 16:18 | CHAPLAIN ---
Bela is a hospice patient who came to the ED after a few falls at her sister's where Bela lives. Today she listened to the volunteer playing the dulcimer and told me she really enjoyed the music, especially the songs by Marc. Bela was discharged today and transferred to [facility] not long after I spoke with her.
== END 2022-11-24 14:03 | disposition skilled nursing facility (03) | DRG 84 ==
LOC: ER 16:21 → MS 16:23
PROVIDERS: Admitting Provider Nurse Practitioner; Emergency Provider Student in an Organized Health Care Education/Training Program; PCP Student in an Organized Health Care Education/Training Program; Visit Provider Nurse Practitioner
DX: S06.5XAA Traumatic subdural hemorrhage with loss of consciousness status unknown, initial encounter (principal); W19.XXXA Unspecified fall, initial encounter; R91.1 Solitary pulmonary nodule; G30.9 Alzheimer's disease, unspecified; F02.80 Dementia in other diseases classified elsewhere, unspecified severity, without behavioral disturbance, psychotic disturbance, mood disturbance, and anxiety; F01.50 Vascular dementia, unspecified severity, without behavioral disturbance, psychotic disturbance, mood disturbance, and anxiety; J44.9 Chronic obstructive pulmonary disease, unspecified; E11.40 Type 2 diabetes mellitus with diabetic neuropathy, unspecified; K21.9 Gastro-esophageal reflux disease without esophagitis; F41.9 Anxiety disorder, unspecified; Z66 Do not resuscitate; R26.89 Other abnormalities of gait and mobility; R32 Unspecified urinary incontinence; Z91.81 History of falling; I62.03 Nontraumatic chronic subdural hemorrhage; R51.9 Headache, unspecified; Z87.891 Personal history of nicotine dependence; Z51.5 Encounter for palliative care
CPT/HCPCS: 80053; 99285; 70450; 72125; 81003; 81015; 85025; 85610; 85730; 87086; J1100